=== PATIENT | female | born 1990 | race Caucasian/White ===

== ENCOUNTER 2025-03-30 20:13 | Emergency (ER) | payer MEDICAID, SELFPAY ==
[2025-03-30 20:15] VITALS: BP 141/84; PULSE 94; RESP 16; TEMP 36.7; O2SAT 100; BMI 36.1
--- NOTE | 2025-03-30 20:16 | ED_ITS ---
HPI - General Adult General Chief complaint: Wound/Laceration Stated complaint: bleeding from stitches in chest Time Seen by Provider: 03/30/25 20:20 Source: patient, RN notes reviewed and old records reviewed Mode of arrival: ambulatory Limitations: no limitations History of Present Illness ED Provider: Ricardo [facility] narrative: Patient is a 34-year-old female presenting to the emergency department or a wound check of an incision to her left chest. States that she had a lesion removed at her PCP office yesterday with subsequent sutures placed. Small amount of bleeding after the procedure. Then today the incision began to bleed again. She states that she held pressure for up to 30 minutes and bleeding continued. She denies any purulent drainage, redness, warmth. Denies fevers. MD complaint: wound check Related Data Allergies Allergy/AdvReac Type Severity Reaction Status Date / Time SEASONAL ALLERGIES Allergy Mild SNEEZING Uncoded 03/30/25 20:20 Review of Systems 2 Review of Systems: as per hpi Yes all other systems are reviewed and are negative Constitutional: Constitutional: Reports as per HPI Physical Exam ED Vital Signs: Vital Signs - 24 hr 03/30/25 20:15 Temperature 98.0 F Pulse Rate 94 Respiratory Rate 16 Blood Pressure 141/84 H Pulse Oximetry 100 Oxygen Delivery Method Room Air BMI result Body Mass Index 36.1 Vital signs have been reviewed and appear to be correct. Blood pressure normal. Heart rate normal. Respiratory rate normal. Temperature normal. Oxygen saturation normal. Const General: cooperative, healthy appearing and no acute distress Orientation/consciousness: oriented to person, oriented to place, oriented to time and patient oriented x3 Limitations: no limitations [facility] Head: Yes normocephalic and Yes atraumatic Ears: external ears normal General nose exam: Normal external nose present Face and sinus: Yes face symmetric Mouth: oropharynx normal and moist mucous membranes Throat: Yes uvula midline Eyes Pupils: Equal, round and reactive pupils present Neck Neck: Yes normal visual inspection and Yes supple Chest Chest/axillae images: 2 1. 2cm incision with scant amount of bleeding, no erythema, warmth or purulent drainage Resp Effort & Inspection: normal respiratory effort and able to speak in complete sentences Auscultation: clear to auscultation bilaterally Cardio Rate: regular rate Rhythm: regular rhythm Heart sounds: S1 normal heart sound present and S2 normal heart sound present GI Palpation (GI): Soft to palpation and nontender Auscultation: normoactive bowel sounds General: Yes no CVA tenderness Back/Spine/Pelvis Back: no CVA tenderness Skin General skin exam: elasticity normal and turgor normal Neuro General: oriented to person, oriented to place, oriented to time, patient oriented x3, moves all extremities, no focal motor deficits and CN's II-XI intact bilaterally Cranial nerves: Yes Equal, round and reactive pupils present Cognition (Neuro): normal cognition Extrem General: Yes full ROM, Yes no pedal edema and Yes no calf tenderness Psych Mental Status: mental status grossly normal Affect: normal affect Thought process: Normal thought process present Medical Decision Making Medical Decision Making [facility] Narrative: Patient is a 34-year-old female presenting to the emergency department or a wound check of an incision to her left chest. On exam patient is awake, A+Ox3, VS WNL, afebrile, normal neurological exam without focal deficits, physical exam findings as above. Given reported symptoms and physical exam findings, initial differential includes but is not limited to wound check, cellulitis. No evidence of infection on physical exam. Bulky dressing applied and bleeding controlled, covered with Tegaderm. Patient given additional Tegaderm and gauze for dressing changes at home. Advised to leave this dressing in place for the next 24 hours, then change in assist wound daily. Follow up with PCP. Return precautions discussed. Patient verbalized understanding of and agreement with plan. Differential Diagnosis Differential Diagnoses: The differential diagnosis associated with the presentation includes as per mdm Admission/Observation Consideration of admission/observation: Escalation of care including admission/observation considered Patient would have been admitted to the hospital had their clinical presentation warranted hospital admission. External Record Review External record reviewed: Inpatient record, Office record and Outpatient record Discharge Plan Discharge Clinical Impression: Visit for wound check Patient Disposition: Home, Self-Care Additional Instructions: You were evaluated in the emergency department today for a wound check. Your wound was continuing to have a small amount of bleeding and a large dressing was placed over the area. There were no signs of infection at this time. We recommend that you keep this dressing in place for the next 24 hours, then change the dressing daily. Try to avoid getting the wound wet. Follow-up with your PCP or return to the emergency department if you develop thick yellow drainage, redness and warmth around the incision, fever or any other new or concerning symptoms. Print Language: Fijian
--- OUTSIDE RECORDS SUMMARY | 2025-03-30 20:35 | XMS_ITS | Encounter Summary ---
Author Organization [facility] Address [address] [place] [address] Phone Care Team Providers Care Core Composer Machine Tender Name Role Phone Yolanda Grijalva Primary Care Provider [phone] Encounter Details Date Type Department Care Team (Late Contact Info) Description 01/31/2025 Documentation Only [facility] [address] [place] [address] [place] [address] [place] [address] Social History Tobacco Use Types Packs/Day Years Used Date Smoking Tobacco: Never Assessed Comments Unknown Sex and Gender Information Value Date Recorded Sex Assigned at Not on file Legal Sex Female 2:08 PM EDT Gender Identity Not on file Sexual Orientation Not on file documented as of this encounter Plan of Treatment Upcoming Encounters Date Type Department Care Team (Late Contact Info) Description 05/12/2025 10:45 AM EDT Office Visit [facility] Kindra M[address] Karolina PEREYRA [address] [place] [phone] Mika Thibodeaux MD [address] [place] [address] [place] [address] documented as of this encounter Visit Diagnoses Not on filedocumented in this encounter Care Teams Core Composer Machine Tender Relationship Specialty Start Date End Date Yolanda Grijalva PA [address] [place] [phone] PCP - General Physician Surveillance Technician 01/31/25 documented as of this encounter
--- OUTSIDE RECORDS SUMMARY | 2025-03-30 20:35 | XMS_ITS | Continuity of Care Document ---
Author Organization [facility], Main Office Address [address] [facility] [address] [place] [address] Assessment No assessment recorded. Plan of Treatment Reminders Order Date Submit Date Provider Last Modified By Organization Details Last Modified Time Details Appointments Dermatolo gy Any 15 2024 11:45A M CAROLYN MANRIQUEZ Not available Not available Not available Lab surgical pathology study - atypical nevus r/o MM, see attached prior path from [facility] 2024 025 [email or web address] [facility], [address] [place], [address], 03/29/2025 15:04:34 Referral None recorded. Procedures None recorded. Surgeries None recorded. Imaging None recorded. Medication Orders None recorded. Patient TargetsNo targets recorded. Patient InstructionsNo instructions recorded. Reason for Referral None Reported. Procedures Surgical History Date Name Laterality Status Provider Name and Address Organization Details Recorded Time Dermatology Excision completed CAROLYN MANRIQUEZ [address] [place] [address] [address], [place], [address], [facility] 03/29/2025 14:58:38 Imaging Results None recorded. Procedure Notes None recorded. Medical Equipment None Reported. Allergies No known drug allergies Medications Name Sig Start Date Stop Date Status Note LastModified by Organization Details LastModified Time atorvastatin 10 mg tablet TAKE 1 TABLET BY MOUTH EVERY DAY active Not Available Not Available No t Available aspirin 81 mg tablet,delay ed release TAKE 1 TABLET BY MOUTH EVERY DAY active Not Available Not Available No t Available lisinopril 10 mg tablet TAKE 1 TABLET BY MOUTH EVERY DAY FOR HYPERTENSIO N active Not Available Not Available No t Available hydroxyzine HCl 25 mg tablet TAKE 1 TABLET BY MOUTH TWICE DAILY NEEDED FOR ANXIETY active Not Available Not Available No t Available hydrochlorot hiazide 25 mg tablet TAKE 1 TABLET BY MOUTH EVERY DAY FOR HYPERTENSIO N active Not Available Not Available No t Available ketoconazole 2 % topical cream APPLY TO TO THE AFFECTED AREA ON FEET TOPICALLY ONCE DAILY DIRECTED active Not Available Not Available Not Available lisinopril 40 mg tablet TAKE 1 TABLET BY MOUTH EVERY DAY FOR HYPERTENSIO N active Not Available Not Available No t Available Vitals None Recorded Social History None recorded. Functional Status None recorded. Mental Status None recorded. Family History Nothing Reported. Medical History No medical history recorded. Gynecological HistoryNo gynecological history recorded. Obstetrics History GPAL:G 0 P 0 0 0 0 Immunizations Vaccine Type Date Status Note Provider Nam e and Address Organization Details Recorded Time Influenza, recombinant, quadrivalent, PF 0 completed Not Available [facility] 03/29/2025 14:05:42 Influenza, split virus, quadrivalent, PF 1 completed Not Available [facility] 03/29/2025 14:05:42 Tdap 1 completed Not Available [facility] 03/29/2025 14:05:42 COVID-19, mRNA, LNP-S, PF, 30 mcg/0.3 mL dose 1 completed Not Available [facility] 03/29/2025 14:05:42 HPV9 0 completed Not Available [facility] 03/29/2025 14:05:42 HPV, quadrivalent 2 completed Not Available [facility] 03/29/2025 14:05:42 Tdap 2 completed Not Available [facility] 03/29/2025 14:05:42 HPV, quadrivalent 1 completed Not Available [facility] 03/29/2025 14:05:42 COVID-19, mRNA, LNP-S, PF, 30 mcg/0.3 mL dose 1 completed Not Available [facility] 03/29/2025 14:05:42 HPV, quadrivalent 2 completed Not Available [facility] 03/29/2025 14:05:42 influenza, split (incl. purified surface antigen) 2 completed Not Available [facility] 03/29/2025 14:05:42 HPV, unspecified formulation 0 completed Not Available [facility] 03/29/2025 14:05:42 HPV, unspecified formulation 2 completed Not Available [facility] 03/29/2025 14:05:42 MMR 1 completed Not Available [facility] 03/29/2025 14:05:42 Past Encounters Encounter ID Performer Location Encounter Start Date Encounter Closed Date Diagnosis/Indication Diagnosis SNOMED-CT Code Diagnosis ICD10 Code Diagnosis Note [id number] CAROLYN MANRIQUEZ Main Office [address] [facility],[address] [place] [address] 03/29/2025 14:00:50 03/29/2025 15:53:19 Dysplastic nevus of skin 339736888 D22.9 Health Concerns Section Related Observation LastModified by Organization Detai ls LastModified Time None Recorded Concern Status LastModified by Organization Details LastModified Time None Recorded Payers Encounter Date Sequence Insurance Name Policy Number Policy Devries Covered Member ID Devries Member ID Guarantor Name 03/29/2025 1 [facility] HP - DOS ON OR AFTER 2022 - [facility] [employer] (MEDICAID REPLACEMENT - HMO) Lashay Beverly [id number] Lashay Beverly Notes Date Note Type Note Provider Name and Address Organization Details Recorded Time 03/29/2025 text/html Patient here today for evaluation and possible removal of lesion on the chest. PCP did biopsy which showed atypical cells and it was recomended that the lesion be excised. CAROLYN MANRIQUEZ [address] [facility], [place], [address], [place] [facility] 03/29/2025 14:59:36 OBGyn Episode No OBEpisode recorded.
[2025-03-30 21:05] VITALS: BP 141/84; PULSE 94; RESP 16; TEMP 36.7; O2SAT 100
== END 2025-03-30 20:35 | disposition home or self-care (01) ==
PROVIDERS: Emergency Provider Emergency Medicine; PCP Internal Medicine
DX: Z48.00 Encounter for change or removal of nonsurgical wound dressing (principal)
CPT/HCPCS: 99282